=== PATIENT | female | born 1950 | race Asian ===

== ENCOUNTER 2017-01-24 09:19 | Day surgery (SDC) | payer OTHER ==
[2017-01-24] MEDS ORDERED: SIMETHICONE 40 MG/0.6 ML ML ONE (09:43)
[2017-01-24] MEDS: MEPERIDINE HCL/PF 100 MG/ML AMP ONE ×2 (10:31→10:38)
[2017-01-24] MEDS: MIDAZOLAM HCL 5 MG/5 ML VIAL ONE ×4 (10:31→10:52)
[2017-01-24 11:32] LABS: BASOPHILS % (AUTO) 0.5 % (0.0-2.0); EOSINOPHILS # (AUTO) 0.3 K/uL (0.0-0.4); EOSINOPHILS % (AUTO) 8.7 % (0.0-4.0); HEMATOCRIT 29.2 % (36-48); HEMOGLOBIN 9.6 g/dL (12.0-16.0); LYMPHOCYTES # (AUTO) 0.9 K/uL (1.0-5.5); LYMPHOCYTES % (AUTO) 26.1 % (20.5-51.5); MEAN CORPUSCULAR HEMOGLOBIN 31 pg (27-31); MEAN CORPUSCULAR HGB CONC 33 % (32-36); MEAN CORPUSCULAR VOLUME 94 fL (79.0-98.0); MONOCYTES # (AUTO) 0.5 K/uL (0.0-1.0); MONOCYTES % (AUTO) 14.6 % (1.7-9.3); NEUTROPHILS # (AUTO) 1.9 K/uL (1.8-7.7); NEUTROPHILS % (AUTO) 50.1 % (40.0-70.0); PLATELET COUNT (AUTO) 110 K/uL (130-430); RED CELL DISTRIBUTION WIDTH 15.8 % (9.0-15.0); WHITE BLOOD COUNT (AUTO) 3.6 K/uL (4.8-10.8)
[2017-01-24] MEDS ORDERED: EPINEPHrine JECT 1 MG/10 ML SYR ONE (13:40)
[2017-01-24 15:17] VITALS: BP_SYST 156
== END 2017-01-24 12:15 | disposition home or self-care (01) ==
LOC: SDS 09:19
PROVIDERS: ATTEND Internal Medicine Gastroenterology
DX: K29.70 Gastritis, unspecified, without bleeding (principal); K92.2 Gastrointestinal hemorrhage, unspecified; K25.4 Chronic or unspecified gastric ulcer with hemorrhage; E78.5 Hyperlipidemia, unspecified; Z99.2 Dependence on renal dialysis; M19.90 Unspecified osteoarthritis, unspecified site; E23.0 Hypopituitarism; D64.9 Anemia, unspecified; E11.22 Type 2 diabetes mellitus with diabetic chronic kidney disease; I12.0 Hypertensive chronic kidney disease with stage 5 chronic kidney disease or end stage renal disease; N18.6 End stage renal disease; Z79.4 Long term (current) use of insulin
CPT/HCPCS: 36415; 43255; 85025; J0171; J2175; J2250; J7030